=== PATIENT | female | born 1965 | race Caucasian/White ===

== ENCOUNTER → 2017-09-22 | Outpatient (CLI) | payer OTHER ==
[~2017-09-22] MED LIST: GADOBUTROL 10 MMOL/10 ML PFS ONE
== END | disposition home or self-care (01) ==
LOC: CFH 14:21
PROVIDERS: ATTEND Registered Nurse
DX: M85.2 Hyperostosis of skull (principal)
CPT/HCPCS: 70544; 70553; A9585

== ENCOUNTER → 2020-04-11 | Outpatient (CLI) | payer OTHER ==
[~2020-04-11] MED LIST changes: -GADOBUTROL 10 MMOL/10 ML PFS ONE; +GADOTERATE 7.5 MMOL/15 ML VIAL ONE
== END | disposition home or self-care (01) ==
LOC: RAD 13:04
PROVIDERS: ATTEND Registered Nurse
DX: G45.9 Transient cerebral ischemic attack, unspecified (principal)
CPT/HCPCS: 70553; A9575